=== PATIENT | female | born 1975 | race Caucasian/White ===

== ENCOUNTER 2016-10-04 10:41 | Emergency (ER) | payer OTHER ==
[~2016-10-04] VITALS: Ht 167.6 cm; Wt 77.0 kg
[~2016-10-04 10:41] MED LIST: GABA100C4 PO
[2016-10-04 10:44] VITALS: BP 137/70; PULSE 63; RESP 14; TEMP 98.3; O2SAT 99
--- NOTE | 2016-10-04 13:18 | PD ---
HPI Chief Complaint: Psychiatric Symptoms Time Seen by Provider: 13:16 Travel History International Travel<30 days: No Contact w/Intl Traveler<30days: No Traveled to known affect area: No History of Present Illness HPI 41 year old female with PMH of CVA in 2012, chronic pancreatitis, anxiety presents to the ED for evaluation of 3 week history of stabbing neck pain. Intermittent, rated 10/10, radiating to the top of the head. Pain in the top of the head is described as a burning. She endorses intermittent dizziness. No alleviating or exacerbating factors reported. She denies headache, vision changes, fever, chills, nausea, vomiting. Patient can identify no recent injury or overuse. 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 Patient also complains of increased anxiety. She endorses several stressors including recently losing her job, an antagonistic relationship with her mother, a special needs child and feeling as if her is cold and uncaring. She denies suicidal or homicidal ideation. She endorses compliance with her daily medications. Denies cigarette smoking, illicit drug or alcohol use. PFSH Past Medical History Blood Disorders: Yes ("BLEED ON THE BRAIN") Anxiety: Yes Cerebrovascular Accident: Yes (2013-cva, hx ) Diminished Hearing: No Headaches: Yes Musculoskeletal: Yes (SPRAINED RIGHT ANKLE, SPINAL STENOSIS) Pancreatitis: Yes (CHRONIC) Seizures: Yes Ulcer: Yes (STOMACH) ?: Not : 1 Para: 1 Past Surgical History Gynecologic Surgery: Yes (breast augmentation) Other Surgery: Yes (brest ) Social History Alcohol Use: No Tobacco Use: No Substance Use: Yes (HX MARIJUANA) Allergies-Medications (Allergen,Severity, Reaction): Coded Allergies: Zoloft (Verified Allergy, Severe, rash and blisters, 10/04/16) Codeine (Verified Allergy, Intermediate, itchy, 10/04/16) Cephalosporins (Verified Allergy, Unknown, 10/04/16) Hydrocodone (Verified Allergy, Unknown, 10/04/16) Ibuprofen (Verified Allergy, Unknown, 10/04/16) Latex (Verified Allergy, Unknown, 10/04/16) Morphine (Verified Allergy, Unknown, 10/04/16) Penicillin (Verified Allergy, Unknown, 10/04/16) Tylenol (Verified Allergy, Unknown, 10/04/16) Uncoded Allergies: CONTROL PILLS (Allergy, Unknown, 12/09/14) Reported Meds & Prescriptions Reported Meds & Active Scripts Active Reported Topamax (Topiramate) 25 Mg Tab Unknown Dose PO BID Gabapentin 300 Mg Cap 300 Mg PO TID Clonazepam 1 Mg Tab 1 Mg PO TID Review of Systems Except as stated in HPI: all other systems reviewed are Neg Physical Exam Narrative GENERAL: Well-nourished, well-developed tearful white female in no acute distress. PSYCHIATRIC: No delusional thought processes. No hallucinations. Pressured speech. Tangential, can be redirected. SKIN: Warm and dry. Multiple tattoos HEAD: Normocephalic. Atraumatic. No raccoon eyes or bah sign. No tenderness to palpation of the skull. No bony step-offs. No malocclusion of the teeth. EYES: No scleral icterus. No injection or drainage. Pupils 3-4 mm bilaterally. PERRLA. EOMI. ENT: [place] tympanic membrane is bilaterally. Nasal mucosa is moist. Oropharynx without erythema, edema or exudate. NECK: Supple, trachea midline. No JVD or lymphadenopathy. Dorsocervical fat pad. ++ midline tenderness to palpation. Patient retains full, active, painless range of motion of the neck. CARDIOVASCULAR: Regular rate and rhythm without murmurs, gallops, or rubs. 2+ DP and radial pulses bilaterally. RESPIRATORY: Breath sounds clear and equal bilaterally. No accessory muscle use. GASTROINTESTINAL: Abdomen soft, non-tender, nondistended. + Bowel sounds MUSCULOSKELETAL: No cyanosis, or edema. Patient is observed to walk with a normal gait. She moves easily from sitting to standing positions. NEUROLOGICAL: Awake and alert. Cranial nerves II through XII intact. Motor and sensory grossly within normal limits. No pronator drift. 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 Normal speech. BACK: Nontender without obvious deformity. No CVA tenderness. No midline tenderness. tenderness. Data Data Last Documented VS Vital Signs Date Time Temp Pulse Resp B/P Pulse Ox O2 Delivery O2 Flow Rate FiO2 10/04/16 15:03 98 Room Air 10/04/16 13:16 64 18 10/04/16 10:44 98.3 137/70 Orders Complete Blood Count With Diff (10/04/16 13:43) Comprehensive Metabolic Panel (10/04/16 13:43) Urinalysis - C+S If Indicated (10/04/16 13:43) Drug Screen, Random Urine (10/04/16 13:43) Oximetry (10/04/16 13:43) Iv Access Insert/Monitor (10/04/16 13:43) Ecg Monitoring (10/04/16 13:43) Alcohol (Ethanol) (10/04/16 13:43) Psych Screen (10/04/16 13:43) Ct Brain W/O Iv Contrast(Rout) (10/04/16 13:48) Ct Cerv Spine W/O Contrast (10/04/16 13:48) Ed Urine Pregnancytest Poc (10/04/16 13:48) Topiramate (Topamax) (10/04/16 13:57) Sodium Chlor 0.9% 1000 Ml Inj (Ns 1000 M (10/04/16 14:15) Lorazepam Inj (Ativan Inj) (10/04/16 14:15) Mri Brain W&W/O Contrast (10/04/16 15:44) Gadodiamide Pf Inj (Omniscan Pf Inj) (10/04/16 18:34) Labs Laboratory Tests Test 10/04/16 10/04/16 14:08 14:30 White Blood Count 8.6 TH/MM3 Red Blood Count 4.58 MIL/MM3 Hemoglobin 13.8 GM/DL Hematocrit 40.7 % Mean Corpuscular Volume 88.9 FL Mean Corpuscular Hemoglobin 30.1 PG Mean Corpuscular Hemoglobin 33.8 % Concent Red Cell Distribution Width 15.0 % Platelet Count 363 TH/MM3 Mean Platelet Volume 8.8 FL Neutrophils (%) (Auto) 52.5 % Lymphocytes (%) (Auto) 38.0 % Monocytes (%) (Auto) 7.1 % Eosinophils (%) (Auto) 1.8 % Basophils (%) (Auto) 0.6 % Neutrophils # (Auto) 4.5 TH/MM3 Lymphocytes # (Auto) 3.3 TH/MM3 Monocytes # (Auto) 0.6 TH/MM3 Eosinophils # (Auto) 0.2 TH/MM3 Basophils # (Auto) 0.1 TH/MM3 CBC Comment DIFF FINAL Differential Comment Sodium Level 141 MEQ/L Potassium Level 3.4 MEQ/L Chloride Level 110 MEQ/L Carbon Dioxide Level 22.0 MEQ/L Anion Gap 9 MEQ/L Blood Urea Nitrogen 9 MG/DL Creatinine 0.99 MG/DL Estimat Glomerular Filtration 62 ML/MIN Rate Random Glucose 85 MG/DL Calcium Level 8.7 MG/DL Total Bilirubin 0.2 MG/DL Aspartate Amino Transf 18 U/L (AST/SGOT) Alanine Aminotransferase 27 U/L (ALT/SGPT) Alkaline Phosphatase 44 U/L Total Protein 7.7 GM/DL Albumin 4.0 GM/DL Ethyl Alcohol Level LESS THAN 3 MG/DL Urine Color YELLOW Urine Turbidity CLEAR Urine pH 5.5 Urine Specific [place] 1.011 Urine Protein NEG mg/dL Urine Glucose (UA) NEG mg/dL Urine Ketones NEG mg/dL Urine Occult Blood NEG Urine Nitrite NEG Urine Bilirubin NEG Urine Urobilinogen LESS THAN 2.0 MG/DL Urine Leukocyte Esterase SMALL Urine RBC 3 /hpf Urine WBC 4 /hpf Urine Squamous Epithelial 4 /hpf Cells Urine Bacteria RARE /hpf Microscopic Urinalysis Comment CULT NOT INDICATED Urine Opiates Screen NEG Urine Barbiturates Screen NEG Urine Amphetamines Screen NEG Urine Benzodiazepines Screen POS Urine Cocaine Screen NEG Urine Cannabinoids Screen POS MDM Medical Decision Making Medical Screen Exam Complete: Yes Emergency Medical Condition: Yes Differential Diagnosis Cephalgia versus Adjustment disorder versus anxiety versus bipolar versus depression versus dementia versus electrolyte disorder versus malingering versus mood disorder versus ODD versus psychosis versus PTSD versus schizophrenia versus schizoaffective disorder versus substance-induced mood disorder versus other Narrative Course 41 year old female with PMH of CVA in 2012, chronic pancreatitis, anxiety presents to the ED for evaluation of 3 week history of intermittent, 10/10, stabbing neck pain that radiates to the top of the head. 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 Pain in the top of the head is described as burning. She endorses intermittent dizziness. No alleviating or exacerbating factors reported. She denies headache, vision changes, fever, chills, nausea, vomiting , recent injury or overuse. Also complains of increased anxiety,endorses several stressors including recently losing her job, an antagonistic relationship with her mother, a special needs child and feeling as if her is cold and uncaring. Denies suicidal or homicidal ideation. Vitals reviewed, within normal limits. Physical exam reveals a tearful white female, somewhat pressured speech, tangential but easy to redirect. No focal neural deficits, positive midline tenderness of the cervical spine, otherwise unremarkable. No focal neuro deficits. IV was established. Patient was placed on continuous monitoring. She was administered a liter of fluids and 1 mg Ativan IV. Psych screen ordered. CBC: No leukocytosis or anemia. CMP: Unremarkable UA: No culture indicated Urine test: negative Topamax: Pending. Alcohol: Less than 3 Tox screen: Positive for benzodiazepines, cannabinoids. CT of the cervical spine: Negative per radiology read CT of the brain: Focal hyperdensity in the left callosal/pericallosal region measuring 10 mm, possible acute parenchymal hemorrhage. MRI recommended per radiology read. MRI of the brain with and without contrast: (ordered 1545) 1 cm area of focal signal abnormality along the left posterior aspect of the corpus callosum and possibly extending into the surrounding brain. Low signal on the flair images and diffusion weighted images and has blooming artifact on susceptibility waiting and it itches. No focal mass effect or abnormal enhancement. Etiology unclear but probably a focal area of hemosiderin deposit from prior hemorrhage or trauma or small vascular malformation per radiology read. Medical workup unremarkable. The patient is amenable to voluntary psychiatric evaluation. The patient is medically clear for psychiatric evaluation. Please see psych notes for disposition. Diagnosis Primary Impression: Cephalgia Qualified Code: R51 - Nonintractable headache, unspecified chronicity pattern , unspecified headache type Iona Ha Oct 04, 2016 13:18
[2016-10-04] MEDS ORDERED: CLON1TAB PO (13:55)
[2016-10-04] MEDS ORDERED: TOPA25TA8 PO (13:55)
[2016-10-04] MEDS ORDERED: GABA300C5 PO (13:55)
[2016-10-04] MEDS ORDERED: SODIUM CHLOR 0.9% 1000 ML INJ 1,000 ML IV ONE (14:15)
[2016-10-04] MEDS ORDERED: LORazepam 2 MG/ML VIAL IV PUSH ONE (14:15)
[2016-10-04 14:22] LABS: AUTOMATED NEUTROPHIL # 4.5 TH/MM3 (1.8-7.7); BASOPHIL # 0.1 TH/MM3 (0-0.2); BASOPHIL % 0.6 % (0.0-2.0); EOSINOPHIL # 0.2 TH/MM3 (0-0.4); EOSINOPHIL % 1.8 % (0.0-4.0); HEMATOCRIT 40.7 % (35.0-46.0); HEMO FLAGS DIFF FINAL; LYMPHOCYTE # 3.3 TH/MM3 (1.0-4.8); MEAN CELL VOLUME 88.9 FL (80.0-100.0); MEAN CORPUSCULAR HEMOGLOBIN 30.1 PG (27.0-34.0); MEAN CORPUSCULAR HGB CONC 33.8 % (32.0-36.0); MONO % 7.1 % (0.0-8.0); NEUT % 52.5 % (16.0-70.0); PLATELET COUNT 363 TH/MM3 (150-450); RED BLOOD COUNT 4.58 MIL/MM3 (4.00-5.30); WHITE BLOOD COUNT 8.6 TH/MM3 (4.0-11.0)
[2016-10-04 14:37] LABS: ALT (GPT) 27 U/L (10-53); ANION GAP 9 MEQ/L (5-15); AST (GOT) 18 U/L (15-37); BLOOD UREA NITROGEN 9 MG/DL (7-18); CHLORIDE 110 MEQ/L (98-107); GLOMERULAR FILTRATION RATE 62 ML/MIN (>89); POTASSIUM 3.4 MEQ/L (3.5-5.1); SODIUM (NA) 141 MEQ/L (136-145)
[2016-10-04 14:40] LABS: ALKALINE PHOSPHATASE 44 U/L (45-117); TOTAL BILIRUBIN ADULT 0.2 MG/DL (0.2-1.0)
[2016-10-04 14:55] LABS: BACTERIA, URINE RARE /hpf; BLOOD, URINE NEG (NEG); COMMENT (UR) CULT NOT INDICATED; CULTURE IF INDICATED CULT NOT INDICATED; GLUCOSE,URINE NEG (NEG); KETONE, URINE NEG (NEG); NITRITE,URINE NEG (NEG); PH, URINE 5.5 (5.0-8.5); SQUAMOUS EPITHELIAL CELL URINE 4 /hpf (0-5); URINE COLOR YELLOW (YELLW/STRAW)
[2016-10-04 15:03] VITALS: O2SAT 98
[2016-10-04 15:25] LABS: AMPHETAMINE, URINE NEG (NEG); BARBITURATES, URINE NEG (NEG); COCAINE, URINE NEG (NEG)
--- NOTE | 2016-10-04 15:34 | RADRPT ---
EXAM DATE/TIME: 10/04/2016 15:19 [facility] COMPARISON: No previous studies available for comparison. INDICATIONS : Pain radiating from neck to posterior head RADIATION DOSE: 42.99 CTDIvol (mGy) MEDICAL HISTORY : Seizures. Pancreatitis. Cerebrovascular disease. SURGICAL HISTORY : None. ENCOUNTER: Initial ACUITY: 3 weeks PAIN SCALE: 4/10 LOCATION: Bilateral neck TECHNIQUE: Volumetric scanning of the cervical spine was performed. Multiplanar reconstructions in the sagittal, coronal and oblique axial planes were performed. Using automated exposure control and adjustment o f the mA and/or kV according to patient size, radiation dose was kept as low as reasonably achievable to obtain optimal diagnostic quality images. FINDINGS: The sagittal reconstructions demonstrate normal alignment and normal prevertebral soft tissues. The d ens is intact and there is a normal atlantoaxial relationship. Mild degenerative changes present at t he C5-6 level with disc space narrowing and atrophic change. The axial images demonstrate that the vertebral bodies and posterior elements are intact. The soft ti ssues are within normal limits. There is no evidence of acute fracture or malalignment. CONCLUSION: Negative trauma CT. Reji Guzman MD on October 04, 2016 at 15:31 Board Certified Radiologist. This report was verified electronically.
--- NOTE | 2016-10-04 15:55 | RADRPT ---
EXAM DATE/TIME: 10/04/2016 15:19 [facility] COMPARISON: No previous studies available for comparison. INDICATIONS : Stabbing pain in neck radiating to top of head. RADIATION DOSE: 47.21 CTDIvol (mGy) MEDICAL HISTORY : Cerebrovascular disease. Seizures. Pancreatitis. SURGICAL HISTORY : None. ENCOUNTER: Initial ACUITY: 3 weeks PAIN SCALE: 7/10 LOCATION: Cranial TECHNIQUE: Multiple contiguous axial images were obtained of the head. Using automated exposure control and adj ustment of the mA and/or kV according to patient size, radiation dose was kept as low as reasonably a chievable to obtain optimal diagnostic quality images. FINDINGS: There is a focal area of hyperdensity in the expected region of the left callosal/pericallosal region measuring 1 cm in size suggestive of parenchymal bleed. MRI of the brain with and without contrast would be helpful for further evaluation of this suspicious finding. The ventricles, sulci, and cister ns are unremarkable. There is no acute infarct, midline shift or extra-axial fluid collection. CONCLUSION: 1. Focal hyperdensity within the left callosal/pericallosal region measuring 10 mm raising the possib ility of acute parenchymal hemorrhage. MRI of the brain with and without contrast would be helpful fo r further characterization of this finding. 2. 3. The findings were discussed with Dr. Stanton at 3: 4. 30 PM on 10/04/2016. Sage Buckley MD on October 04, 2016 at 15:27 Board Certified Radiologist. This report was verified electronically.
[2016-10-04] MEDS ORDERED: GADODIAMIDE PF 287 MG/ML 5 ML VIAL (for RAD MRI) IV ONE (18:34)
--- NOTE | 2016-10-04 18:40 | RADRPT ---
EXAM DATE/TIME: 10/04/2016 17:21 [facility] COMPARISON: CT BRAIN W/O CONTRAST, October 04, 2016, 15:19. INDICATIONS : Cephalgia. Abnormal CT. CONTRAST: 14 cc Omniscan (gadodiamide) IV MEDICAL HISTORY : Pancreatitis. Carcinoma, basal cell. SURGICAL HISTORY : Removal of skin cancer from right upper lip. Breast implants. Exploratory surgery of abdomen. ENCOUNTER: Subsequent ACUITY: 1 day PAIN SCORE: 4/10 LOCATION: head. TECHNIQUE: Multiplanar, multisequence MRI of the brain was performed both prior to and following the administrat ion of paramagnetic contrast. FINDINGS: No prior study available for comparison. Correlation is made with CT performed today. At the posterio r aspect of the left corpus callosum there is an area of signal abnormality measuring around 1 cm in width blooming artifact on the susceptibility weighted images. This likely represents a focal area of hemosiderin deposition possibly from a previous hemorrhage. There is no abnormal enhancement of this area postcontrast. No mass effect or shift. No hydrocephalus. No other signal abnormalities in the b rain. CONCLUSION: 1. Approximately 1 cm area of focal signal abnormality along the left posterior aspect of the corpus callosum and possibly extending into the surrounding brain. This correlates with recent CT finding. T his is low signal on the flair images and diffusion weighted images and has blooming artifact on susc eptibility weighted images. No focal mass effect or abnormal enhancement. Etiology unclear but probab ly a focal area of hemosiderin deposition from prior hemorrhage or trauma or small vascular malformat ion. Kip Carrillo MD on October 04, 2016 at 18:31 Board Certified Radiologist. This report was verified electronically.
[2016-10-04 20:14] VITALS: BP 139/76; PULSE 86; RESP 16; O2SAT 98
== END 2016-10-04 21:26 | disposition home or self-care (01) ==
LOC: NEPE 10:41
DX: R51 Headache (principal); R42 Dizziness and giddiness; Z86.73 Personal history of transient ischemic attack (TIA), and cerebral infarction without residual deficits; K86.1 Other chronic pancreatitis
CPT/HCPCS: 70450; 70553; 72125; 80053; 80307; 80320; 81001; 84703; 85025; 96361; 96374; 99284; A9579; J2060; J7030

== ENCOUNTER 2017-11-22 16:03 | Emergency (ER) | payer OTHER ==
[~2017-11-22] VITALS: Ht 165.1 cm; Wt 70.0 kg
[~2017-11-22 16:03] MED LIST changes: +CLON1TAB PO; -GABA100C4 PO; +GABA300C5 PO; +TOPI25 PO
[2017-11-22 16:35] VITALS: BP 106/70; PULSE 84; RESP 18; TEMP 98; O2SAT 98
[2017-11-22 17:12] LABS: AUTOMATED NEUTROPHIL # 8.5 TH/MM3 (1.8-7.7); BASOPHIL # 0.1 TH/MM3 (0-0.2); BASOPHIL % 0.5 % (0.0-2.0); EOSINOPHIL # 0.1 TH/MM3 (0-0.4); EOSINOPHIL % 0.5 % (0.0-4.0); HEMATOCRIT 43.7 % (35.0-46.0); HEMOGLOBIN 14.8 GM/DL (11.6-15.3); LYMPH % 23.2 % (9.0-44.0); LYMPHOCYTE # 2.8 TH/MM3 (1.0-4.8); MEAN CELL VOLUME 90.4 FL (80.0-100.0); MEAN CORPUSCULAR HEMOGLOBIN 30.6 PG (27.0-34.0); MEAN CORPUSCULAR HGB CONC 33.8 % (32.0-36.0); MEAN PLATELET VOLUME 8.4 FL (7.0-11.0); MONO % 5.1 % (0.0-8.0); MONOCYTE # 0.6 TH/MM3 (0-0.9); NEUT % 70.7 % (16.0-70.0); PLATELET COUNT 352 TH/MM3 (150-450); RED BLOOD COUNT 4.84 MIL/MM3 (4.00-5.30); RED CELL DISTRIBUTION WIDTH 14.5 % (11.6-17.2)
[2017-11-22 17:38] LABS: AMORPHOUS SEDIMENT, URINE RARE; BILIRUBIN, URINE NEG (NEG); BLOOD, URINE NEG (NEG); GLUCOSE,URINE NEG (NEG); KETONE, URINE NEG (NEG); NITRITE,URINE NEG (NEG); PH, URINE 6.5 (5.0-8.5); SQUAMOUS EPITHELIAL CELL URINE 4 /hpf (0-5); URINE COLOR LIGHT-YELLOW (YELLW/STRAW); URINE LEUKOCYTE ESTERASE TRACE (NEG)
[2017-11-22 17:40] LABS: ALBUMIN 4.1 GM/DL (3.4-5.0); AST (GOT) 12 U/L (15-37); BLOOD UREA NITROGEN 10 MG/DL (7-18); CHLORIDE 109 MEQ/L (98-107); CREATININE 1.11 MG/DL (0.50-1.00); GLOMERULAR FILTRATION RATE 54 ML/MIN (>89); GLUCOSE,RANDOM 92 MG/DL (74-106); SODIUM (NA) 140 MEQ/L (136-145)
[2017-11-22 17:43] LABS: ALKALINE PHOSPHATASE 51 U/L (45-117); ALT (GPT) 19 U/L (10-53); TOTAL BILIRUBIN ADULT 0.2 MG/DL (0.2-1.0); TOTAL PROTEIN 8.4 GM/DL (6.4-8.2)
[2017-11-22] MEDS ORDERED: TOPI100 PO (18:04)
[2017-11-22] MEDS ORDERED: FLUO20CA12 PO (18:04)
[2017-11-22 18:15] LABS: ACETAMINOPHEN LESS THAN 2.0 MCG/ML (10.0-30.0)
[2017-11-22 18:31] VITALS: BP 111/77; PULSE 69; RESP 18; O2SAT 99
[2017-11-22] MEDS ORDERED: clonazePAM 1 MG TAB PO ONE (20:15)
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
[2017-11-22] MEDS ORDERED: TOPIRAMATE 100 MG TAB PO SCH (21:00)
[2017-11-23 02:27] VITALS: BP 113/66; PULSE 56; RESP 17; TEMP 97.4; O2SAT 17; O2SAT 97
[2017-11-23] MEDS ORDERED: GABAPENTIN 300 MG CAP PO SCH (09:00)
[2017-11-23 10:48] VITALS: BP 121/76; PULSE 66; RESP 16; O2SAT 100
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
--- NOTE | 2017-11-23 12:59 | PD ---
Physical Exam Date Seen by Provider: Nov 23, 2017 Time Seen by Provider: 12:58 Narrative Patient previously medically cleared for psychiatric evaluation has been seen by psychiatric staff and deemed psychiatrically stable for discharge at this time. Patient remains medically stable at this time. Follow-up will be based on psychiatric note. Data Data Last Documented VS Vital Signs Date Time Temp Pulse Resp B/P (MAP) Pulse Ox O2 Delivery O2 Flow Rate FiO2 11/23/17 10:48 66 16 121/76 (91) 100 Room Air 11/23/17 02:27 97.4 Orders Orders Complete Blood Count With Diff (11/22/17 16:28) Comprehensive Metabolic Panel (11/22/17 16:28) Urinalysis - C+S If Indicated (11/22/17 16:28) Psych Screen (11/22/17 16:28) Drug Screen, Random Urine (11/22/17 16:28) Alcohol (Ethanol) (11/22/17 16:28) Salicylates (Aspirin) (11/22/17 16:28) Tylenol (Acetaminophen) (11/22/17 16:28) Gabapentin (Neurontin) (11/23/17 09:00) Topiramate (Topamax) (11/22/17 21:00) Clonazepam (Klonopin) (11/22/17 20:15) Diet Regular Basic (11/23/17 Breakfast) Diet Regular Basic (11/23/17 Lunch) Labs Laboratory Tests Test 11/22/17 16:30 11/22/17 17:00 White Blood Count 12.0 TH/MM3 Red Blood Count 4.84 MIL/MM3 Hemoglobin 14.8 GM/DL Hematocrit 43.7 % Mean Corpuscular Volume 90.4 FL Mean Corpuscular Hemoglobin 30.6 PG Mean Corpuscular Hemoglobin Concent 33.8 % Red Cell Distribution Width 14.5 % Platelet Count 352 TH/MM3 Mean Platelet Volume 8.4 FL Neutrophils (%) (Auto) 70.7 % Lymphocytes (%) (Auto) 23.2 % Monocytes (%) (Auto) 5.1 % Eosinophils (%) (Auto) 0.5 % Basophils (%) (Auto) 0.5 % Neutrophils # (Auto) 8.5 TH/MM3 Lymphocytes # (Auto) 2.8 TH/MM3 Monocytes # (Auto) 0.6 TH/MM3 Eosinophils # (Auto) 0.1 TH/MM3 Basophils # (Auto) 0.1 TH/MM3 CBC Comment DIFF FINAL Differential Comment Blood Urea Nitrogen 10 MG/DL Creatinine 1.11 MG/DL Random Glucose 92 MG/DL Total Protein 8.4 GM/DL Albumin 4.1 GM/DL Calcium Level 9.0 MG/DL Alkaline Phosphatase 51 U/L Aspartate Amino Transf (AST/SGOT) 12 U/L Alanine Aminotransferase (ALT/SGPT) 19 U/L Total Bilirubin 0.2 MG/DL Sodium Level 140 MEQ/L Potassium Level 3.8 MEQ/L Chloride Level 109 MEQ/L Carbon Dioxide Level 22.0 MEQ/L Anion Gap 9 MEQ/L Estimat Glomerular Filtration Rate 54 ML/MIN Salicylates Level 4.3 MG/DL Acetaminophen Level LESS THAN 2.0 MCG/ML Ethyl Alcohol Level LESS THAN 3 MG/DL Urine Color LIGHT-YELLOW Urine Turbidity CLEAR Urine pH 6.5 Urine Specific [place] 1.003 Urine Protein NEG mg/dL Urine Glucose (UA) NEG mg/dL Urine Ketones NEG mg/dL Urine Occult Blood NEG Urine Nitrite NEG Urine Bilirubin NEG Urine Urobilinogen LESS THAN 2.0 MG/DL Urine Leukocyte Esterase TRACE Urine RBC 1 /hpf Urine WBC 1 /hpf Urine Squamous Epithelial Cells 4 /hpf Urine Amorphous Sediment RARE Microscopic Urinalysis Comment CULT NOT INDICATED Urine Opiates Screen NEG Urine Barbiturates Screen NEG Urine Amphetamines Screen NEG Urine Benzodiazepines Screen NEG Urine Cocaine Screen NEG Urine Cannabinoids Screen POS [facility] Medical Record Reviewed: Yes Supervised Visit with ANN: Yes Narrative Course Patient previously medically cleared for psychiatric evaluation has been seen by psychiatric staff and deemed psychiatrically stable for discharge at this time. Patient remains medically stable at this time. Follow-up will be based on psychiatric note. Diagnosis Primary Impression: Medical clearance for psychiatric admission Additional Impression: Adjustment disorder Patient Instructions: General Instructions Disposition: DISCHARGE HOME Condition: Stable Adolfo Michele Nov 23, 2017 12:59
== END 2017-11-23 13:59 | disposition home or self-care (01) ==
LOC: NEDAMB 16:03 → NEPJ 11-23 13:59
DX: F43.23 Adjustment disorder with mixed anxiety and depressed mood (principal); F12.90 Cannabis use, unspecified, uncomplicated; Z79.899 Other long term (current) drug therapy
CPT/HCPCS: 80053; 80307; 81001; 85025; 99284